=== PATIENT | female | born 2000 | race Caucasian/White ===

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

== ENCOUNTER 2023-04-30 07:39 | Outpatient (REF) | payer OTHER, SELFPAY ==
[2023-04-30 11:10] LABS: MANUAL DIFF FLAG NO
[2023-04-30 11:20] LABS: Basophils Absolute Auto 0.1 X10*3/uL (0.0-0.2); Eosinophils Absolute Auto 1.1 X10*3/uL (0.0-0.4); Eosinophils Percent Auto 10.4 % (0-4); Hematocrit 42.2 % (37.0-47.0); Imm Gran Abs Auto 0.03 X10*3/uL (0.00-0.03); Imm Gran Pct Auto 0.3 % (0.0-0.4); Lymphocytes Absolute Auto 3.2 X10*3/uL (1.2-4.9); Lymphocytes Percent Auto 31.4 % (20-40); Mean Corpuscular HGB Conc 33.2 g/dl (31.0-35.0); Mean Corpuscular Volume 87.4 fL (80.0-98.0); Mean Platelet Volume 11.6 fL (9.4-12.3); Monocytes Absolute Auto 0.7 X10*3/uL (0.1-1.2); Monocytes Percent Auto 6.4 % (2-11); Neutrophils Absolute Auto 5.2 x10*3/uL (2.0-8.3); Neutrophils Percent Auto 50.5 % (45-73); Platelet Count 290 X10*3/uL (160-400); Red Blood Count 4.83 X10*6/uL (4.20-5.50); White Blood Count 10.3 X10*3/uL (4.8-10.8)
[2023-04-30 11:34] LABS: Estimated Average Glucose 103 mg/dL; Hemoglobin A1c % 5.2 % (<6.0)
[2023-04-30 11:51] LABS: Alanine Aminotransferase 18 U/L (0-31); Albumin Level 4.4 g/dL (3.5-5.0); Alkaline Phosphatase 51 U/L (39-117); Anion Gap 15 (12-20); Aspartate Amino Transferase 21 U/L (5-31); Bilirubin Total 0.5 mg/dL (0.0-1.0); Blood Urea Nitrogen 19 mg/dL (9-16); Calcium 9.7 mg/dL (8.4-10.2); Carbon Dioxide 23 mmol/L (22-29); Chloride 104 mmol/L (96-108); Cholesterol 169 mg/dL (<200); Estimated Glomerular Filt Rate > 60; Glucose Fasting 88 mg/dL (60-99); HDL Cholesterol 43 mg/dL (>40); LDL Cholesterol Calculated 112 mg/dL (<100); Potassium 3.9 mmol/L (3.3-5.1); Sodium 138 mmol/L (135-145); Total Protein 7.6 g/dL (6.5-8.0); Triglycerides 73 mg/dL (<150)
== END 2023-04-30 07:40 | disposition home or self-care (01) ==
LOC: HO.HMGCLDS 07:39
PROVIDERS: PCP Internal Medicine; Visit Provider Internal Medicine
DX: Z00.00 Encounter for general adult medical examination without abnormal findings (principal)
CPT/HCPCS: 36415; 80053; 80061; 83036; 85025

== ENCOUNTER 2023-05-06 11:15 | Outpatient (AMB) | payer OTHER, SELFPAY ==
--- NOTE | 2023-05-06 11:52 | MHC.PC.OV ---
Vital Signs 05/06/23 11:55 Height 5 ft 4 in Weight 120 lb BMI 20.6 BP 110/76 Blood Pressure Location Lt brachial Position Sitting Pulse 68 Pulse Source Pulse Oximeter Pulse Oximetry (%) 99 Oxygen Delivery Method Room Air Intake Visit Reasons: Annual PE Intake Note: Pt is here today for PE. Allergies No Known Allergies Allergy (Verified 05/06/23 11:57) Medication List - Last Reconciled 05/06/23 by Yareli Kay MD norgestrel-ethinyl estradiol 0.3-30 mg-mcg (Low-Ogestrel (28)) 1 tab PO DAILY Tobacco use date assessed: 05/06/23 Dental Screening Dental Screen Date: 05/06/23 Did you have a dental visit in the last 12 months?: Yes Did you have a dental problem in the last 6 months where you did not have access to dental care?: No Was dental information given to patient?: Patient has dentist HPI Annual PE HPI Details Pt presents for PE.She c/o 2nd right MCP joint swelling erythema and tender to the touch for 1 month. Patient denies any injury or other joint swelling or pain. [facility] Medical History Annual physical exam 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 at [employer], exercise Housing: House Patient Tobacco Use Status: Never used Tobacco e-Cigarette/Vaping Use: Never Used service: No Current occupational status: student Cognitive needs: No Hearing needs: No Vision needs: No Questionnaire Thrive Questionnaire Date Thrive assessed: 05/01/22 I am a: Patient What is your living situation today?: I have a steady place to live Within the past 12 months, did the food you bought not last and you didn't have the money to get more?: Never true Within the past 12 months, did you worry whether your food would run out before you got money to buy more?: Never true Please select the resources that you would like help with: None THRIVE Score: 0 AUDIT C Alcohol Use Questionnaire (AUDIT-C) 1. How often do you have a drink containing alcohol?: Monthly or less 2. How many drinks containing alcohol do you have on a typical day when you are drinking?: 1 or 2 3. How often do you have six or more drinks on one occasion?: Never Total Score: 1 SHERMAN-7 AMB Questionnaire SHERMAN-7 Date SHERMAN - 7 assessed: 05/01/22 Feeling nervous, anxious, or on edge: 2 = More than half the days Not being able to stop or control worryin = Several days Worrying too much about different things: 1 = Several days Trouble relaxin = Several days Being so restless that it is hard to sit still: 0 = Not at all Becoming easily annoyed or irritable: 1 = Several days Feeling afraid as if something awful might happen: 0 = Not at all Total SHERMAN-7 score (0-4 normal; 5-9 mild; 10-14 moderate; 15-21 severe): 6 Source: Developed by Drs. Master Elkins, Mis Humphreys, Tk Alfred and colleagues, with an educational sabrina from [employer]. Review of Systems Const All systems reviewed & are unremarkable except as noted in HPI and below Reports no additional complaints Eyes Reports no additional complaints ENT Reports no additional complaints Card Reports no additional complaints Resp Reports no additional complaints GI Reports no additional complaints Reports no additional complaints Physical exam (Primary Care) Vital Signs: Last Vital Signs Pulse 68 05/06/23 11:55 BP 110/76 05/06/23 11:55 Pulse Ox 99 05/06/23 11:55 Oxygen Delivery Method Room Air 05/06/23 11:55 BMI result Body Mass Index 20.6 Tobacco/Smoking Status: Tobacco use Status Tobacco use date assessed 05/06/23 05/06/23 11:59 Patient Tobacco Use Status Never used Tobacco 05/06/23 11:59 e-Cigarette/Vaping Use Never Used 05/06/23 11:53 Thrive Assessment: Date of Thrive Assessment Date Thrive assessed 05/01/22 05/06/23 11:53 Const General: no acute distress HENMT Head: Yes normal to inspection Ears: hearing grossly normal bilaterally Face and sinus: Yes normal facial exam Mouth: Normal oral and palatal mucosa present Throat: Yes posterior oropharynx normal Eyes General: appearance normal, both eyes and all related structures Neck Neck: Yes no lymphadenopathy and Yes supple Resp Effort & Inspection: normal respiratory effort Auscultation: clear to auscultation bilaterally Cardio Rhythm: regular rhythm Heart sounds: S1 normal heart sound present and S2 normal heart sound present GI Inspection: Yes normal to inspection Palpation (GI): Soft to palpation Percussion: Yes normal to percussion Auscultation: normal bowel sounds Skin Other: erythematous Extrem Other: There is papular erythematous rash on the knuckles of right hand, there is slight soft tissue swelling over 2nd MCP joint there is a full range of motion of the joint Assessment and Plan Assessment & Plan (1) Swollen joint: Comment: 2nd MCP joint Code(s): M25.40 - Effusion, unspecified joint Plan: Check joint x-ray, treat with meloxicam for 10 days and clobetasol topical cream is prescribed for eczema (2) Annual physical exam: Code(s): Z00.00 - Encounter for general adult medical examination without abnormal findings Plan: Well-balanced diet regular physical activity discussed with the patient. 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
[2023-05-06 11:55] VITALS: BP 110/76; PULSE 68; O2SAT 99; BMI 20.6
== END 2023-05-06 13:31 | disposition home or self-care (01) ==
PROVIDERS: PCP Internal Medicine; Visit Provider Internal Medicine
DX: M25.40 Effusion, unspecified joint (principal); Z00.00 Encounter for general adult medical examination without abnormal findings
CPT/HCPCS: 99395

== ENCOUNTER 2023-05-06 12:58 | Outpatient (REF) | payer OTHER, SELFPAY ==
--- NOTE | ~2023-05-06 | XR_ITS ---
EXAMINATION: XR HAND, RIGHT CLINICAL INFORMATION: Joint swelling. COMPARISON: None available. TECHNIQUE: PA, lateral, and oblique views of the right hand. FINDINGS: The bones and soft tissues are normal. No fracture. Alignment is anatomic. There is a mild ulnar positive variance. Joint spaces are maintained. No erosions or soft tissue calcifications. XR/XR hand RT 2V IMPRESSION: Normal right hand.
== END 2023-05-06 12:59 | disposition home or self-care (01) ==
LOC: HO.HMGCX 12:58
PROVIDERS: PCP Internal Medicine; Visit Provider Internal Medicine
DX: M25.441 Effusion, right hand (principal)
CPT/HCPCS: 73120

== ENCOUNTER 2023-05-30 11:48 | Outpatient (AMB) | payer OTHER, SELFPAY ==
[2023-05-30 12:03] VITALS: BP 100/64; PULSE 65; O2SAT 99; BMI 20.1
--- NOTE | 2023-05-30 12:03 | MHC.PC.OV ---
Vital Signs 05/30/23 12:03 Height 5 ft 4 in Weight 117 lb BMI 20.1 BP 100/64 Blood Pressure Location Rt brachial Position Sitting Pulse 65 Pulse Source Pulse Oximeter Pulse Oximetry (%) 99 Oxygen Delivery Method Room Air Intake Visit Reasons: Follow up Intake Note: Pt is here today for her f/u Allergies No Known Allergies Allergy (Verified 05/30/23 12:03) Medication List - Last Reconciled 05/30/23 by Yareli Kay MD clobetasol 0.05% 1 appl topical BEDTIME norgestrel-ethinyl estradiol 0.3-30 mg-mcg (Low-Ogestrel (28)) 1 tab PO DAILY sertraline 25 mg PO DAILY Tobacco use date assessed: 05/30/23 Dental Screening Dental Screen Date: 05/30/23 Did you have a dental visit in the last 12 months?: Yes Did you have a dental problem in the last 6 months where you did not have access to dental care?: No Was dental information given to patient?: Patient has dentist HPI Follow up HPI Details Pt presents for f/u chronic anxiety/panic attacks getting worse for a one month. Pt reports insomnia but denies suicidal ideation. Pt follows up with therapist for 2 years. Patient has never taken any medications and was never hospitalized. 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 1. Little interest or pleasure in doing things: several days 2. Feeling down, depressed, or hopeless: several days 3. Trouble falling or staying asleep, or sleeping too much: more than half the days 4. Feeling tired or having little energy: more than half the days 5. Poor appetite or overeating: more than half the days 6. Feeling bad about yourself - or that you are a failure or have let yourself or your family down: several days 7. Trouble concentrating on things, such as reading the newspaper or watching television: not at all 8. Moving or speaking so slowly that other people could have noticed. Or the opposite - being so fidgety or restless that you have been moving around a lot more than usual: not at all 9. Thoughts that you would be better off or of hurting yourself in some way: not at all Total score: 9 Depression Screening Interpretation: Negative Depression Screening Done: Yes Source: Developed by Drs. Master Elkins, Mis Humphreys, Tk Alfred and colleagues, with an educational sabrina from [employer]. Thrive Questionnaire Date Thrive assessed: 05/30/23 I am a: Patient What is your living situation today?: I have a steady place to live Within the past 12 months, did the food you bought not last and you didn't have the money to get more?: Never true Within the past 12 months, did you worry whether your food would run out before you got money to buy more?: Never true Do you have trouble paying for medicines?: No Do you have trouble getting transportation to medical appointments?: No Do you have trouble paying your heating and electricity bill?: No Do you have trouble taking care of your child, family member or friend?: No Do you have trouble with day-to-day activities such as bathing, preparing meals, shopping, managing finances, etc.?: No Are you currently unemployed and looking for a job?: No Are you interested in more education?: No Please select the resources that you would like help with: None Currently or been in a relationship where the following occur: no concerns reported THRIVE Score: 0 AUDIT C Alcohol Use Questionnaire (AUDIT-C) 1. How often do you have a drink containing alcohol?: Never Total Score: 0 SHERMAN-7 AMB Questionnaire SHERMAN-7 Date SHERMAN - 7 assessed: 05/30/23 Feeling nervous, anxious, or on edge: 3 = Nearly every day Not being able to stop or control worryin = More than half the days Worrying too much about different things: 2 = More than half the days Trouble relaxin = Nearly every day Being so restless that it is hard to sit still: 2 = More than half the days Becoming easily annoyed or irritable: 2 = More than half the days Feeling afraid as if something awful might happen: 1 = Several days Total SHERMAN-7 score (0-4 normal; 5-9 mild; 10-14 moderate; 15-21 severe): 15 Source: Developed by Drs. Master Elkins, Mis Humphreys, Tk Alfred and colleagues, with an educational sabrina from [employer]. Review of Systems Const All systems reviewed & are unremarkable except as noted in HPI and below Reports no additional complaints Eyes Reports no additional complaints ENT Reports no additional complaints Card Reports no additional complaints Resp Reports no additional complaints GI Reports no additional complaints Reports no additional complaints Physical exam (Primary Care) Vital Signs: Last Vital Signs Pulse 65 05/30/23 12:03 BP 100/64 05/30/23 12:03 Pulse Ox 99 05/30/23 12:03 Oxygen Delivery Method Room Air 05/30/23 12:03 BMI result Body Mass Index 20.1 Tobacco/Smoking Status: Tobacco use Status Tobacco use date assessed 05/30/23 05/30/23 12:04 Patient Tobacco Use Status Never used Tobacco 05/30/23 12:04 e-Cigarette/Vaping Use Never Used 05/30/23 12:04 PHQ-9: PHQ-9 Score PHQ-9: Total score 9 05/30/23 13:16 Depression Screening Interpretation: Negative Thrive Assessment: Date of Thrive Assessment Date Thrive assessed 05/30/23 05/30/23 13:16 Currently or been in a relationship where the following occur: no concerns reported Const General: no acute distress Eyes General: appearance normal, both eyes and all related structures Resp Effort & Inspection: normal respiratory effort Cardio Rhythm: regular rhythm Heart sounds: S1 normal heart sound present and S2 normal heart sound present Assessment and Plan Assessment & Plan (1) Anxiety: Comment: Patient is established with a therapist Code(s): F41.9 - Anxiety disorder, unspecified Plan: Start sertraline 12.5 mg daily and follow-up in 1 month, patient was advised to continue regular psychotherapy Medications: New sertraline 1/2 tabl qd 25 mg PO DAILY 30 tabs 0RF Coding Level of Care Code Est Pt Level 3 (49912) Diagnoses Anxiety F41.9
== END 2023-05-30 15:14 | disposition home or self-care (01) ==
PROVIDERS: PCP Internal Medicine; Visit Provider Internal Medicine
DX: F41.9 Anxiety disorder, unspecified (principal)
CPT/HCPCS: 99213

== ENCOUNTER 2023-06-27 11:51 | Outpatient (AMB) | payer OTHER, SELFPAY ==
[2023-06-27 12:08] VITALS: BP 98/60; PULSE 64; O2SAT 99; BMI 20.1
--- NOTE | 2023-06-27 12:08 | MHC.PC.OV ---
Vital Signs 06/27/23 12:08 Height 5 ft 4 in Weight 117 lb 2 oz BMI 20.1 BP 98/60 Blood Pressure Location Lt brachial Position Sitting Pulse 64 Pulse Source Pulse Oximeter Pulse Oximetry (%) 99 Oxygen Delivery Method Room Air Intake Visit Reasons: 1 month follow up Intake Note: Pt is here for a 1 month medication follow up Allergies No Known Allergies Allergy (Verified 06/27/23 12:10) Medication List - Last Reconciled 06/27/23 by Yareli Kay MD clobetasol 0.05% 1 appl topical BEDTIME norgestrel-ethinyl estradiol 0.3-30 mg-mcg (Low-Ogestrel (28)) 1 tab PO DAILY sertraline 12.5 mg (1/2 x 25 mg) PO DAILY Tobacco use date assessed: 06/27/23 Dental Screening Dental Screen Date: 06/27/23 Did you have a dental visit in the last 12 months?: Yes Did you have a dental problem in the last 6 months where you did not have access to dental care?: No Was dental information given to patient?: Patient has dentist HPI 1 month follow up HPI Details Pt presents for follow-up of anxiety and panic attacks feeling better on sertraline. 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 Master Elkins, Mis Humphreys, kT Alfred and colleagues, with an educational sabrina from [employer]. Review of Systems Const All systems reviewed & are unremarkable except as noted in HPI and below Reports no additional complaints Eyes Reports no additional complaints ENT Reports no additional complaints Card Reports no additional complaints Resp Reports no additional complaints GI Reports no additional complaints Reports no additional complaints Physical exam (Primary Care) Vital Signs: Last Vital Signs Pulse 64 06/27/23 12:08 BP 98/60 06/27/23 12:08 Pulse Ox 99 06/27/23 12:08 Oxygen Delivery Method Room Air 06/27/23 12:08 BMI result Body Mass Index 20.1 Tobacco/Smoking Status: Tobacco use Status Tobacco use date assessed 06/27/23 06/27/23 12:12 Patient Tobacco Use Status Never used Tobacco 06/27/23 12:12 e-Cigarette/Vaping Use Never Used 06/27/23 12:12 Thrive Assessment: Date of Thrive Assessment Date Thrive assessed 05/30/23 06/27/23 12:12 Const General: no acute distress Neck Neck: Yes supple Resp Effort & Inspection: normal respiratory effort Auscultation: clear to auscultation bilaterally Cardio Rhythm: regular rhythm Heart sounds: S1 normal heart sound present and S2 normal heart sound present Assessment and Plan Assessment & Plan Medications: Refilled sertraline 12.5 mg (1/2 x 25 mg) PO DAILY 90 tabs 0RF Coding Level of Care Code Est Pt Level 3 (97900)
== END 2023-06-27 12:32 | disposition home or self-care (01) ==
PROVIDERS: PCP Internal Medicine; Visit Provider Internal Medicine
DX: F41.9 Anxiety disorder, unspecified (principal)
CPT/HCPCS: 99213

== ENCOUNTER 2023-09-12 09:23 | Outpatient (AMB) | payer OTHER, SELFPAY ==
[2023-09-12 09:29] VITALS: BP 100/68; PULSE 73; O2SAT 99; BMI 19.6
--- NOTE | 2023-09-12 09:29 | A.OFFPC_ITS ---
Vital Signs 09/12/23 09:29 Height 5 ft 4 in Weight 114 lb BMI 19.6 BP 100/68 Blood Pressure Location Lt brachial Position Sitting Pulse 73 Pulse Source Pulse Oximeter Pulse Oximetry (%) 99 Oxygen Delivery Method Room Air Intake Visit Reasons: 3M F/U Intake Note: Pt is here today for 3 months follow up visit on anxiety. Allergies No Known Allergies Allergy (Verified 09/12/23 09:30) Medication List - Last Reconciled 09/12/23 by Yareli Kay MD clobetasol 0.05% 1 appl topical BEDTIME Low-Ogestrel (28) 0.3-30 mg-mcg (norgestrel-ethinyl estradiol) 1 tab PO DAILY NS sertraline 12.5 mg (1/2 x 25 mg) PO DAILY Tobacco use date assessed: 09/12/23 Dental Screening Dental Screen Date: 06/27/23 HPI 3M F/U HPI Details Patient presents for anxiety. She is feeling better on sertraline but would like to increase the dose. Patient is in process of finding a new therapist. She denies any change in sleep or eating habits, suicidal ideation. [facility] Medical History Annual physical exam 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 at [employer], exercise Housing: House Patient Tobacco Use Status: Never used Tobacco e-Cigarette/Vaping Use: Never Used service: No Current occupational status: student Cognitive needs: No Hearing needs: No Vision needs: No Questionnaire Thrive Questionnaire Date Thrive assessed: 05/30/23 SHERMAN-7 AMB Questionnaire SHERMAN-7 Date SHERMAN - 7 assessed: 05/30/23 Source: Developed by Drs. Master Elkins, Mis Humphreys, Tk Alfred and colleagues, with an educational sabrina from [employer]. Review of Systems Const All systems reviewed & are unremarkable except as noted in HPI and below ENT Reports no additional complaints Card Reports no additional complaints Resp Reports no additional complaints GI Reports no additional complaints Reports no additional complaints Physical exam (Primary Care) Vital Signs: Last Vital Signs Pulse 73 09/12/23 09:29 BP 100/68 09/12/23 09:29 Pulse Ox 99 09/12/23 09:29 Oxygen Delivery Method Room Air 09/12/23 09:29 BMI result Body Mass Index 19.6 Tobacco/Smoking Status: Tobacco use Status Tobacco use date assessed 09/12/23 09/12/23 09:34 Patient Tobacco Use Status Never used Tobacco 09/12/23 09:34 e-Cigarette/Vaping Use Never Used 09/12/23 09:34 Thrive Assessment: Date of Thrive Assessment Date Thrive assessed 05/30/23 09/12/23 09:34 Const General: no acute distress HENMT Head: Yes normal to inspection Neck Neck: Yes supple Resp Effort & Inspection: normal respiratory effort Auscultation: clear to auscultation bilaterally Cardio Rhythm: regular rhythm Heart sounds: S1 normal heart sound present and S2 normal heart sound present Assessment and Plan Assessment & Plan (1) Anxiety: Comment: Patient is established with a therapist Code(s): F41.9 - Anxiety disorder, unspecified Plan: increase Zoloft to 25 mg, continue psychotherapy Medications: Changed From norgestrel-ethinyl estradiol 0.3-30 mg-mcg (Low-Ogestrel (28)) 1 tab PO DAILY 168 tabs 3RF To Low-Ogestrel (28) 0.3-30 mg-mcg (norgestrel-ethinyl estradiol) 1 tab PO DAILY 168 tabs 3RF NS From sertraline 12.5 mg (1/2 x 25 mg) PO DAILY 90 tabs 0RF To sertraline 25 mg PO DAILY 90 tabs 0RF Coding Level of Care Code Est Pt Level 3 (09855) Diagnoses Anxiety F41.9
== END 2023-09-12 10:26 | disposition home or self-care (01) ==
PROVIDERS: PCP Internal Medicine; Visit Provider Internal Medicine
DX: F41.9 Anxiety disorder, unspecified (principal)
CPT/HCPCS: 99213

== ENCOUNTER 2024-05-03 10:16 | Outpatient (AMB) | payer OTHER, SELFPAY ==
[2024-05-03 10:32] VITALS: BP 100/66; PULSE 74; TEMP 36.8; O2SAT 97; BMI 20.3
--- NOTE | 2024-05-03 10:32 | A.OFFPC_ITS ---
Vital Signs 05/03/24 10:32 Height 5 ft 4 in Weight 118 lb BMI 20.3 BP 100/66 Blood Pressure Location Lt brachial Position Sitting Pulse 74 Pulse Source Pulse Oximeter Temp 98.2 F Temp Source Oral Pulse Oximetry (%) 97 Oxygen Delivery Method Room Air Intake Visit Reasons: Annual PE Intake Note: Pt is here today for PE. Allergies No Known Allergies Allergy (Verified 05/03/24 10:32) Medication List - Last Reconciled 05/03/24 by Yareli Kay MD clobetasol 0.05% 1 appl topical BEDTIME Low-Ogestrel (28) 0.3-30 mg-mcg (norgestrel-ethinyl estradiol) 1 tab PO DAILY NS sertraline 25 mg PO DAILY tretinoin 0.05% (Retin-A) 1 appl topical BEDTIME Tobacco use date assessed: 05/03/24 Dental Screening Dental Screen Date: 05/03/24 Did you have a dental visit in the last 12 months?: Yes Did you have a dental problem in the last 6 months where you did not have access to dental care?: No Was dental information given to patient?: Patient has dentist HPI Annual PE HPI Details Pt presents for PE. Chronic anxiety is stable on Zoloft. Patient complains of worsening acne since August. She has been using Retin A with some improvement [facility] Medical History (Updated 05/03/24 @ 11:46 by Yareli Kay MD) Annual physical exam Surgical History [place] teeth extracted Family History Father Hypertension Mother No problems noted. 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 1. Little interest or pleasure in doing things: several days 2. Feeling down, depressed, or hopeless: several days 3. Trouble falling or staying asleep, or sleeping too much: several days 4. Feeling tired or having little energy: several days 5. Poor appetite or overeating: several days 6. Feeling bad about yourself - or that you are a failure or have let yourself or your family down: several days 7. Trouble concentrating on things, such as reading the newspaper or watching television: not at all 8. Moving or speaking so slowly that other people could have noticed. Or the opposite - being so fidgety or restless that you have been moving around a lot more than usual: not at all 9. Thoughts that you would be better off or of hurting yourself in some way: not at all Total score: 6 Depression Screening Interpretation: Negative Depression Screening Done: Yes 92184 - PHQ-9 Billing: Yes Source: Developed by Drs. Master Elkins, Mis Humphreys, Tk Alfred and colleagues, with an educational sabrina from [employer]. Thrive Questionnaire Date Thrive assessed: 05/03/24 I am a: Patient What is your living situation today?: I have a steady place to live Within the past 12 months, did the food you bought not last and you didn't have the money to get more?: Never true Within the past 12 months, did you worry whether your food would run out before you got money to buy more?: Never true Do you have trouble paying for medicines?: No Do you have trouble getting transportation to medical appointments?: No Do you have trouble paying your heating and electricity bill?: No Do you have trouble taking care of your child, family member or friend?: No Do you have trouble with day-to-day activities such as bathing, preparing meals, shopping, managing finances, etc.?: No Are you currently unemployed and looking for a job?: No Are you interested in more education?: No Please select the resources that you would like help with: None Currently or been in a relationship where the following occur: No concerns repo rted THRIVE Score: 0 AUDIT C Alcohol Use Questionnaire (AUDIT-C) 1. How often do you have a drink containing alcohol?: Never 3. How often do you have six or more drinks on one occasion?: Never Total Score: 0 SHERMAN-7 AMB Questionnaire SHERMAN-7 Date SHERMAN - 7 assessed: 05/03/24 Feeling nervous, anxious, or on edge: 1 = Several days Not being able to stop or control worryin = Several days Worrying too much about different things: 1 = Several days Trouble relaxin = Several days Being so restless that it is hard to sit still: 0 = Not at all Becoming easily annoyed or irritable: 1 = Several days Feeling afraid as if something awful might happen: 1 = Several days Total SHERMAN-7 score (0-4 normal; 5-9 mild; 10-14 moderate; 15-21 severe): 6 Source: Developed by Drs. Master Elkins, Mis Humphreys, Tk Alfred and colleagues, with an educational sabrina from [employer]. SHERMAN-7 Assessment Billing SHERMAN-7 Assessment Tool: SHERMAN-7 Assessment 18699 Review of Systems Const All systems reviewed & are unremarkable except as noted in HPI and below Reports no additional complaints Eyes Reports no additional complaints ENT Reports no additional complaints Card Reports no additional complaints Resp Reports no additional complaints GI Reports no additional complaints Reports no additional complaints Musc Reports no additional complaints Physical exam (Primary Care) Vital Signs: Last Vital Signs Temp 98.2 F 05/03/24 10:32 Pulse 74 05/03/24 10:32 BP 100/66 05/03/24 10:32 Pulse Ox 97 05/03/24 10:32 Oxygen Delivery Method Room Air 05/03/24 10:32 BMI result Body Mass Index 20.3 Tobacco/Smoking Status: Tobacco use Status Tobacco use date assessed 05/03/24 05/03/24 10:34 Patient Tobacco Use Status Never used Tobacco 05/03/24 10:34 e-Cigarette/Vaping Use Never Used 05/03/24 10:34 PHQ-9: PHQ-9 Score PHQ-9: Total score 6 05/03/24 10:34 Depression Screening Interpretation: Negative Thrive Assessment: Date of Thrive Assessment Date Thrive assessed 05/03/24 05/03/24 10:34 Currently or been in a relationship where the following occur: No concerns reported Const General: no acute distress HENMT Head: Yes normal to inspection Ears: hearing grossly normal bilaterally General nose exam: Normal external nose present Face and sinus: Yes normal facial exam Mouth: Normal oral and palatal mucosa present Throat: Yes posterior oropharynx normal Eyes General: appearance normal, both eyes and all related structures Neck Neck: Yes no lymphadenopathy and Yes supple Resp Effort & Inspection: normal respiratory effort Auscultation: clear to auscultation bilaterally Cardio Rhythm: regular rhythm Heart sounds: S1 normal heart sound present and S2 normal heart sound present GI Inspection: Yes normal to inspection Palpation (GI): Soft to palpation Percussion: Yes normal to percussion Auscultation: normal bowel sounds Skin Other: Pustulae and acne scarring on face mainly cheeks Coding Level of Care Code Est Pt Prev Care 18-39y(46490) Diagnoses Normal pelvic exam Z01.419 Anxiety F41.9 Annual physical exam Z00.00 Acne L70.9 Additional Codes SHERMAN-7 Assessment Billing - SHERMAN-7 Assessment Tool: SHERMAN-7 Assessment 21222 ([id number]) PHQ-9 - 31631 - PHQ-9 Billing: Yes ([id number]) Assessment & Plan Assessment & Plan (1) 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 (4) Acne: Code(s): L70.9 - Acne, unspecified Category: Medical Plan: She will try Retin-A point 0 5% cream. Skin care discussed with the patient. She is not interested in trying spironolactone Medications: New tretinoin 0.05% (Retin-A) 1 appl topical BEDTIME 45 grams 1RF Refilled sertraline 25 mg PO DAILY 90 tabs 3RF
--- OUTSIDE RECORDS SUMMARY | 2024-05-03 14:53 | XMS_ITS | Clinical Summary ---
Author Organization [facility] Address [address] [place] [id number] Phone Care Team Providers Care Service Employee Name Role Phone Unavailable Primary Care Provider Unavailabl e Allergies Active Allergy Reactions Criticality Noted Date Comments Cat Dander Pollen Extract Medications Low-Ogestrel 0.3-30 MG-MCG per tabletIndications: Encounter for initial prescription of contraceptive pills TAKE 1 TABLET BY MOUTH EVERY DAY 84 tablet 2 Active Active Problems Problem Noted Date Diagnosed Date Depression 02/25/2020 Overview (02/25/2020): referred for therapy, recommended f/u in 1-2 months, consider meds if worsening or not improving Mild acne 04/10/2018 Overview (02/23/2020): 04/2018: dense pinpoint open comedones on nose, forehead, cheeks. No cystic or erythematous lesions. Recently started a [employer] acne system. 02/2020-Uses curology with good effect Assessment & Plan (02/23/2020 8:51 AM EST): Uses curology with good effect Assessment & Plan (11/25/2019 3:55 PM EDT): Will assess for improvement on OCPs Allergic rhinitis 12/30/2014 Assessment & Plan (02/23/2020 12:48 PM EST): Stable. No concerns Resolved Problems Problem Noted Date Diagnosed Date Resolved Date Leg length discrepancy 01/15/201702/22 Overview (01/15/2017): Slightly higher left hip, shoulder. Spine straight. Assessment & Plan (04/10/2018 4:05 PM EST): Slight asymmetry of hips/waist creases standing, and of paraspinal muscles in bending, but spine itself is straight. Immunizations Name Administration Dates Next Due DTaP 06/23/2006, 4,2002,09/27,2002 H1N1 04/06/2009,02/25/2009 HPV Vaccine 9 Valent 12/25/2015,11/08/2014 HPV, Quadrivalent 11/02/2013 Hep A, ped/adol 02/23/2020 Hep B, ped/adol 02/04/2003,2002,2002 Hib (PRP-T) 09/09/2003, 3,2002,08/02 IPV 06/23/2006, 4,2002,08/02 Influenza 03/12/2007,03/02/2004,01/27/2004 Influenza, injectable, MDCK, preservative free, quadrivalent 04/22/2019 Influenza, injectable, quadr ivalent, preservative free 02/01/2020,02/04/2018,01/14/2017 Influenza, intranasal, quadrivalent 02/04/2015,1 04/14/2013,01/30/2013 Influenza, intranasal, trivalent 05/01/2012,/10/2010,03/12/2010 MMR 09/09/2003 MMRV 06/23/2006 Meningococcal Conj (Menactra) MCV4P 02/23/2020,0 11/02/2013 Pneumococcal Conjugate 06/06/2004,2002,2002,08/02 Tdap 11/02/2013 Varicella 06/10/2003 Family History Relation Name Status Comments Father Father: Rupture d lower disc, surgery Father's Brother Paternal Un ion: migraine, brain aneurysm, surgically repaired Maternal Grandfather Mat GFa ther: liver cancer, Hypertension, heart disease, , thyroid disease, diabetes Maternal Grandmother Alive Mat GMo ther: cancer, endometrial, lung disease Other 1 cholesterol or lipids, hypertension, endometrial cancer Other 2 emphysema Other 3 migraine, brain aneurysm, surgically repaired Other 4 migraine, prost ate cancer, migraine Other 5 Ruptured lower disc, surgery Other 6 sister, healthy Other 7 type 2 diabetes , hypertension Other 8 type 2 diabetes , hypertension Other 9 Alive cancer, endomet rial, lung disease Other 10 liver cancer, H ypertension, heart disease, , thyroid disease, diabetes Paternal Grandfather Pat Gr- GFather: type 2 diabetes, hypertension Paternal Grandmother Pat Gr- GMother: type 2 diabetes, hypertension Social History Tobacco Use Types Packs/Day Years Used Date Smoking Tobacco: Former Comments:Tried vaping a coup le of times, will not do again Alcohol Use Standard Drinks/Week Comments No 0 (1 standard drink = 0.6 oz pur e alcohol) Hunger/Food Answer Date Recorded In the last 12 months, did y ou or your family ever eat less than you felt you should because there wasn't enough money for food? No 02/23/2020 Stable Housing Answer Date Recorded Are you worried that in the next 2 months you may not have stable housing? No 02/23/2020 Transportation Concerns Answer Date Rec orded In the last 12 months, have you or your family ever had to go without healthcare because you didn't have a way to get there? No 02/23/2020 Hazards in Home Answer Date Recorded Think about the place you li ve. Do you have problems with any of the following? Pests (mice or roaches), mold, no/not working smoke detectors, water leaks, no window guards. No 2019 Financing Utilities Answer Date Recorde d In the last 12 months, has t he electric, gas, oil, or water company threatened to shut off your services in your home? No 02/23/2020 Safety at Home Answer Date Recorded Are you or your family worried about feeling saf e in your home? No 02/23/2020 Outside Support Answer Date Recorded Do you feel that you need mo re support from other people or programs to help you care for yourself or your family? No 02/23/2020 Understanding Health Concerns Answer Da te Recorded Do you need help understandi ng your or your child's healthcare needs (diagnosis, medications, plan, etc.)? No 02/23/2020 Financing Health Concerns Answer Date R ecorded In the last 12 months, was t here a time when your child needed to see a doctor or get medications or supplies but could not because of cost? No 02/23/2020 Missing School or Work Answer Date Micah rded Did you or your child miss s chool or work because of a health problem that could have been avoided? No 02/23/2020 Comments Unknown Sex and Gender Information Value Date Recorded Sex Assigned at Not on file Legal Sex Female 10:32 PM EST Gender Identity Female 05/31/2020 7:49 AM EST Sexual Orientation Not on file Last Filed Vital Signs Vital Sign Reading Time Taken Comments Blood Pressure 113/78 02/23/2020 8:05 AM EST Pulse 76 02/23/2020 8:05 AM EST Temperature 36.9 ??C (98.4 ??F) 08/18/2018 8:05 AM ED T Respiratory Rate - - Oxygen Saturation 98% 01/26/2016 12:00 AM EDT Inhaled Oxygen Concentration - - Weight 60.3 kg (133 lb) 02/23/2020 8:05 AM EST Height 164.5 cm (5' 4.75 ) 02/23/2020 8:05 AM ES T Body Mass Index 22.3 02/23/2020 8:05 AM EST Plan of Treatment Health Maintenance Due Date Last Done Comments Men B Vaccine (1 of 2 - Standard) 2018 Hepatitis A Vaccines (2 of 2 - 2-dose series) 08/22/2020 02/23/2020 DTaP,Tdap,and Td Vaccines (7 - Td or Tdap) 11/03/2023 11/02/2013, 06/23/2006, 12/16/2003, Additional history exists Influenza Vaccines (#1) 2023 02/01/20 20, 04/22/2019, 02/04/2018, Additional history exists COVID-19 Vaccine (4 - 2023-2 5 season) 2023 04/07/2021, 09/28/2020, 09/07/2020 Hepatitis B Vaccines Completed 02/04/2003, 2002, 2002 HIB Vaccines Completed 09/09/2003, 11/06, 2002, Additional history exists Pneumococcal Vaccine Completed 06/06/2004, 2002, 2002, Additional history exists IPV Vaccines Completed 06/23/2006, 08/2003, 2002, Additional history exists MMR Vaccines Completed 06/23/2006, 09/09/2003 Varicella Vaccines Completed 06/23/2006, 06/10/2003 HPV Vaccines Completed 12/25/2015, 0 07/2014, 11/02/2013 Meningococcal Vaccine Completed 02/23/2020, 014
--- OUTSIDE RECORDS SUMMARY | 2024-05-03 14:53 | XMS_ITS | Encounter Summary ---
Author Organization [facility] Address [address] [place] [address] Phone Care Team Providers Care Grocery Cashier Name Role Phone Christal Pulido MD Primary Care Provider Encounter Details Date Type Department Care Team (Late st Contact Info) Description 11/13/2016 Conversion Encounter [facility] - [address], [address] [place] [address] Hansa Guevara NP [address] [place] [address] Social History Tobacco Use Types Packs/Day Years Used Date Smoking Tobacco: Never Assessed Comments Unknown Sex and Gender Information Value Date Recorded Sex Assigned at Not on file Legal Sex Female 10:32 PM EST Gender Identity Female 05/31/2020 7:49 AM EST Sexual Orientation Not on file documented as of this encounter Plan of Treatment Not on file documented as of this encounter Visit Diagnoses Not on filedocumented in this encounter Care Teams Grocery Cashier Relationship Specialty Start Date End Date Christal Pulido MD [address] [place] [address] PCP - General Pediatrics 09/14/21 09/17/21 documented as of this encounter
--- OUTSIDE RECORDS SUMMARY | 2024-05-03 14:53 | XMS_ITS | Encounter Summary ---
Author Organization [facility] Address [address] [place] [address] Phone Care Team Providers Care Command Center Analyst Name Role Phone Christal Pulido MD Primary Care Provider [phone] Reason for Visit * Reason Comments Med Refill Encounter Details Date Type Department Care Team (Late st Contact Info) Description 02/17/2021 Refill [facility] - [place] [address] [place] [address] Tory Langston MD Encounter for initial prescription of contraceptive pills Social History Tobacco Use Types Packs/Day Years [...] documented as of this encounter Visit Diagnoses Diagnosis Encounter for initial prescription of contraceptive pills documented in this encounter Care Teams Command Center Analyst Relationship Specialty Start Date End Date Christal Pulido MD [address] [place] [address] PCP - General Pediatrics 09/14/21 09/17/21 documented as of this encounter
--- OUTSIDE RECORDS SUMMARY | 2024-05-03 14:53 | XMS_ITS | Encounter Summary ---
Author Organization [facility] Address [address] [place] [address] Phone Care Team Providers Care Citizenship Instructor Name Role Phone Christal Pulido MD Primary Care Provider [phone] Reason for Visit * Reason Comments Med Refill Encounter Details Date Type Department Care Team (Late st Contact Info) Description 09/03/2020 Refill [facility] - [place] [address] [place] [address] Tory Langston MD Encounter for initial prescription [...] pills documented in this encounter Care Teams Citizenship Instructor Relationship Specialty Start Date End Date Christal Pulido MD [address] [place] [address] PCP - General Pediatrics 09/14/21 09/17/21 documented as of this encounter
== END 2024-05-03 11:47 | disposition home or self-care (01) ==
PROVIDERS: PCP Internal Medicine; Visit Provider Internal Medicine
DX: Z01.419 Encounter for gynecological examination (general) (routine) without abnormal findings (principal); F41.9 Anxiety disorder, unspecified; Z00.00 Encounter for general adult medical examination without abnormal findings; L70.9 Acne, unspecified

== ENCOUNTER → 2024-05-03 10:16 | Outpatient (BNVA) | payer OTHER, SELFPAY | PROVIDERS: PCP Internal Medicine; Visit Provider Internal Medicine | DX: Z00.00 Encounter for general adult medical examination without abnormal findings (principal); F41.9 Anxiety disorder, unspecified; L70.9 Acne, unspecified; Z79.899 Other long term (current) drug therapy | CPT/HCPCS: 96127 ==

== ENCOUNTER 2024-11-26 13:23 | Outpatient (AMB) | payer OTHER, SELFPAY ==
--- OUTSIDE RECORDS SUMMARY | 2024-11-26 13:26 | XMS_ITS | Encounter Summary ---
Author Organization [facility] Address [address] [place] [address] Phone Care Team Providers Care Headwaiter/Headwaitress Name Role Phone Christal Pulido MD Primary Care Provider + [phone] Reason for Visit * Reason Comments Med Refill Encounter Details Date Type Department Care Team (Late st Contact Info) Description 02/17/2021 Refill [facility] - [place] [address] [place] [address] Tory Langston MD Encounter for initial prescription [...] pills documented in this encounter Care Teams Headwaiter/Headwaitress Relationship Specialty Start Date End Date Christal Pulido MD [address] [place] [address] PCP - General Pediatrics 09/14/21 09/17/21 documented as of this encounter
--- NOTE | 2024-11-26 13:42 | AM.OFFWIN_ITS ---
Intake Vital Signs 11/26/24 13:44 Height 5 ft 4 in Weight 120 lb BMI 20.6 BP 102/70 Blood Pressure Location Rt brachial Position Sitting Pulse 76 Pulse Source Pulse Oximeter Temp 98.0 F Temp Source Oral Pulse Oximetry (%) 99 Oxygen Delivery Method Room Air Intake Visit Reasons: ep rash and hand and feet ingrown toenail Intake Note: pt presents with itchy and sometimes painful, bumpy rash on some fingernail cuticles and toenail cuticles. Also c/o ingrown toenail RT great toe Patient Tobacco Use Status: Never used Tobacco Allergies No Known Allergies Allergy (Verified 11/26/24 13:45) Do you need a note to return to daycare/school/sports/work: No HPI ep rash and hand and feet ingrown toenail HPI Details This is a 24-year-old female patient who presents to the walk-in clinic today with report of two primary complaints. She has an ingrown toenail on her left great toe that is causing pain. She also several days ago developed itchy bumps around her cuticles of her finger and toenails. She denies any exposure to allergens or use of any new products/medications. 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 Denies any other rashes. [facility], [facility] Medical History Annual physical exam Surgical History [place] teeth extracted Family History Father Hypertension Mother No problems noted. 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, exercise Housing: House Patient Tobacco Use Status: Never used Tobacco e-Cigarette/Vaping Use: Never Used service: No Current occupational status: student Cognitive needs: No Hearing needs: No Vision needs: No Review of Systems Const All systems reviewed & are unremarkable except as noted in HPI and below Physical Exam Const General: cooperative, healthy appearing, comfortable and no acute distress HEENT Head: Yes normal to inspection Ears: hearing grossly normal bilaterally Resp Effort & Inspection: normal respiratory effort Skin Other: Rash consistent with dyshidrotic eczema with small itchy, skin-colored lesions beyond nailbeds on cuticles of all fingers and toes. Extrem Other: Ingrown toenail left great toe, medial aspect. Erythematous and indurated. Small area of fluctuance along medial nailbed. General: Yes no clubbing, cyanosis or edema Psych Appearance: grossly normal Mental Status: mental status grossly normal Speech and movement: Normal speech and movement present Office Procedures Incision and Drainage Informed consent given: Yes Consent signed: Yes Anesthesia: none Incision with: needle (25g) Drainage quality: purulent and serous Culture taken: No Lesion: erythema, drainage, fluctuance and induration Hemostasis: pressure Dressing: gauze Patient tolerated procedure: well Complications: No Additional details: I was able to drain only a small amount of serous/slightly purulent fluid from site. Assessment & Plan Assessment & Plan (1) Dyshidrotic eczema: Code(s): L30.1 - Dyshidrosis [pompholyx] Plan: Plan to start patient on a topical steroid cream. We reviewed us of this. If rash persists with treatment she can return to clinic, PCP (Dr. Kay) or may wish to w/u with dermatology. (2) Ingrown left big toenail: Code(s): L60.0 - Ingrowing nail Plan: Will start on antibiotics. Given purulent drainage, will start on Bactrim for MRSA coverage. We reviewed indications, use, possible side effects of this. If she does not improve, or if symptoms worsen or she develops any worsening pain, swelling, warmth, fever/chills, she should return to the clinic or the emergency department for evaluation. Patient verbalizes understanding and agrees to plan. Medications: New betamethasone dipropionate 0.05% Apply to rash on fingers and toes twice a day for up to two weeks 1 appl topical BID PRN 45 grams 1RF skin irritation 2 weeks L30.1 - Dyshidrosis [pompholyx] sulfamethoxazole-trimethoprim 800-160 mg 1 tab PO BID 14 tabs 0RF 7 days L60.0 - Ingrowing nail Coding Level of Care Code Est Pt Level 4 (18073) Diagnoses Dyshidrotic eczema L30.1 Ingrown left big toenail L60.0
[2024-11-26 13:44] VITALS: BP 102/70; PULSE 76; TEMP 36.7; O2SAT 99; BMI 20.6
== END 2024-11-26 14:37 | disposition home or self-care (01) ==
PROVIDERS: PCP Internal Medicine; Visit Provider Nurse Practitioner Family
DX: L30.1 Dyshidrosis [pompholyx] (principal); L60.0 Ingrowing nail